=== PATIENT | male | born 1945 | race Caucasian/White ===

== ENCOUNTER 2020-06-28 12:21 | Emergency (ER) | payer MEDICARE, SELFPAY ==
--- NOTE | 2020-06-28 12:58 | ED.SKABFB ---
HPI - Skin/Abscess/Foreign Bdy General Chief complaint: Skin/Abscess/Foreign Body Stated complaint: shingles Time Seen by Provider: 06/28/20 12:58 Source: patient and RN notes reviewed Mode of arrival: ambulatory Limitations: no limitations History of Present Illness HPI narrative: 74-year-old male presents to the [facility] stating I think I have shingles. Patient states he thinks he has shingles to bilateral lower legs. On exam patient's legs are red, swollen and warm to touch. Right lower leg has green purulent dried crusted drainage that is malodorous. Patient reports that he does have some redness and swelling but since he pulled off a scab the leg just became worse. Patient is a poor historian. Denies any fevers. [facility] MD complaint: lesion Onset (ago): week(s) Location: LLE and RLE Severity: moderate Pain Consistency: constant Related Data Home Medications Medication Instructions Recorded Confirmed amlodipine 5 mg PO DAILY 06/28/20 06/28/20 lisinopril 30 mg PO DAILY 06/28/20 06/28/20 metoprolol tartrate 100 mg PO DAILY 06/28/20 06/28/20 Allergies Allergy/AdvReac Type Severity Reaction Status Date / Time No Known Allergies Allergy Verified 06/28/20 14:00 Review of Systems Constitutional: Constitutional: Reports as per HPI, Denies chills, Denies fever(s) and Denies weakness Cardiovascular: Cardiovascular: Reports no additional cardiovascular complaints and Denies chest pain Respiratory: Respiratory: Reports no additional respiratory complaints, Denies cough and Denies dyspnea Gastrointestinal: Gastrointestinal: Reports no additional gastrointestinal complaints, Denies abdominal pain, Denies nausea and Denies vomiting Musculoskeletal: Musculoskeletal: Reports as per HPI Integumentary/Breasts: Skin/Breast: Reports as per HPI and Reports erythema Neurologic: Denies dizziness Psychiatric: Psychiatric: Reports no additional psychiatric complaints PMFSH Past Medical History Medical History Hypertension Comments Patient not a very good historian. States he has high blood pressure and irregular heartbeat. At the time of my signature, I reviewed and agree with the nursing past medical, surgical, social, and family history. There is no relevant family history pertinent to the patient complaint. Exam Const: General: no acute distress, alert, ill appearing chronically and poor hygiene Orientation/consciousness: patient oriented x3 Other: Strong odor of infection, body odor. Neck: Neck: normal visual inspection Chest: Chest palpation & inspection: normal inspection of the chest Resp: Auscultation: diminished lung sounds diffuse Cardio: Rate: bradycardic Skin: Wounds: wounds noted right lower leg drainage green and malodorous Other: Circumferential right lower leg erythema, swelling, crusted dry drainage, purulent drainage, malodorous Circumferential left lower leg swelling and redness. Neuro: General: oriented to person, oriented to place and gait normal Speech: normal speech Extrem: General: edema bilateral Psych: Appearance: disheveled Affect: normal affect Attitude: cooperative Course Course Emergency Course: Due to the circumferential redness and swelling in the green drainage with the purulent patient to follow-up in 2-3 days with primary care provider. Along with odor explained to patient that lab work is needed and that topical treatment will not work alone. Assured patient that this was not shingles. Discussed rinse of not going to ER for further evaluation, patient verbalized understanding. Vital Signs Vital signs: Vital Signs Temperature 97.5 F L 06/28/20 13:00 Pulse Rate 56 L 06/28/20 13:00 Respiratory Rate 17 06/28/20 13:00 Blood Pressure 156/77 H 06/28/20 13:00 Pulse Oximetry 99 06/28/20 13:00 Temperature 97.5 F L 06/28/20 13:00 Pulse Rate 56 L 06/28/20 13:00
[2020-06-28 13:00] VITALS: BP 156/77; PULSE 56; RESP 17; TEMP 36.4; O2SAT 99
== END 2020-06-28 13:05 | disposition short-term general hospital (02) ==
PROVIDERS: Emergency Provider Nurse Practitioner
DX: L03.116 Cellulitis of left lower limb (principal); L03.115 Cellulitis of right lower limb; I10 Essential (primary) hypertension
CPT/HCPCS: 99212; G0463

== ENCOUNTER 2020-06-28 13:34 | Emergency (ER) | payer MEDICARE, SELFPAY ==
--- NOTE | ~2020-06-28 | US_ITS ---
US venous doppler LE RT DATE: 06/28/2020 16:34 INDICATION: Right leg swelling, cellulitis TECHNIQUE: Real-time and color flow imaging and Doppler analysis of the veins of the right lower extr emity COMPARISON: None FINDINGS: Right greater saphenous vein is patent. There is spontaneous and phasic flow and normal aug mentation and color flow signal and normal compression of the deep veins of the right lower extremity . IMPRESSION: No evidence of deep venous thrombosis of the right lower extremity Reviewed, dictated and finalized at [facility]. Reviewed, dictated and finalized at [facility].
[2020-06-28 14:27] VITALS: BP 138/73; PULSE 54; RESP 18; TEMP 36.6; O2SAT 100
[2020-06-28 14:41] LABS: Basophils Absolute Auto 0.1 K/mm3 (0.0-0.1); Basophils Percent Auto 0.7 % (0.2-1.2); Eosinophils Absolute Auto 0.1 K/mm3 (0-0.3); Eosinophils Percent Auto 0.7 % (0-4.4); Hematocrit 38.4 % (42.0-52.0); Hemoglobin 13.7 g/dL (14.0-18.0); Immature Granulocyte Absolute 0.04 K/mm3 (0.00-0.031); Immature Granulocyte Percent A 0.5 % (0-0.5); Lymphocytes Absolute Auto 1.23 K/mm3 (0.9-3.2); Lymphocytes Percent Auto 16.5 % (18.3-44.2); Mean Corpuscular HGB Conc 35.7 g/dl (32-36); Mean Corpuscular Volume 103.8 fl (80-100); Mean Platelet Volume 10.2 fl (7.4-10.4); Monocytes Percent Auto 12.9 % (2.6-8.5); Neutrophils Absolute Auto 5.1 K/mm3 (1.3-6.7); Neutrophils Percent Auto 68.7 % (45.5-73.1); Platelet Count Result 174 k/mm3 (150-375); Red Cell Distribution Width 12.4 % (11.5-14.5); White Blood Count 7.5 K/mm3 (4.5-10.0)
[2020-06-28 15:04] LABS: Anion Gap 8 mmol/L (8-16); Blood Urea Nitrogen 6 mg/dL (9-20); Calcium 9.3 mg/dL (8.4-10.2); Carbon Dioxide 27 mmol/L (22-30); Chloride 92 mmol/L (98-107); Estimated CRCL calculation 71 ml/min; Estimated Glomerular Filt Rate > 60; Glucose 90 mg/dL (75-110); Potassium 4.2 mmol/L (3.4-5.0); Sodium 127 mmol/L (137-145)
--- NOTE | 2020-06-28 16:46 | ED.GENADULT ---
HPI - General Adult General Chief complaint: Skin/Abscess/Foreign Body Stated complaint: leg cellulitis Time Seen by Provider: 06/28/20 15:13 Source: patient Mode of arrival: ambulatory Limitations: no limitations History of Present Illness HPI narrative: Patient is a 74-year-old male who presents to emergency department for evaluation of wound to the medial aspect of the right ruano patient notes weeping lesion with mild discomfort patient notes that is been there for several days has not been seen for this, plaint patient denies any fever chills nausea vomiting patient is followed at the [facility] Related Data Home Medications Medication Instructions Recorded Confirmed amlodipine 5 mg PO DAILY 06/28/20 06/28/20 lisinopril 30 mg PO DAILY 06/28/20 06/28/20 metoprolol tartrate 100 mg PO DAILY 06/28/20 06/28/20 Allergies Allergy/AdvReac Type Severity Reaction Status Date / Time No Known Allergies Allergy Verified 06/28/20 14:00 Review of Systems Review of Systems: All systems reviewed & are unremarkable except as noted in HPI and below PMFSH Past Medical History Medical History Hypertension Exam Narrative: Exam Narrative: GENERAL: Well-appearing, well-nourished, and in no acute distress. HEAD: Normocephalic, atraumatic. EYES: PERRLA and EOMI. ENT: Nares clear, no rhinorrhea or epistaxis. Mucous membranes moist. CHEST: Clear to auscultation. No respiratory distress. No wheezes rales or rhonchi HEART: Regular rate and rhythm. No murmur heard. EXTREMITIES: Normal range of motion. No edema. SKIN: Warm, dry, no rash. Patient with superficial wound to the medial aspect of the right ruano calf region with slight swelling no erythema yellow dry exudate noted no lymphangitic streaking minimal tenderness to palpation area seems consistent with possible infected venous stasis ulcer NEURO: No focal deficits. Alert and oriented x3. PSYCH: Normal mood and affect. Course Course Emergency Course: Patient evaluated in the emergency department for open wound to the leg patient will be discharged home advised to follow-up with his primary care for consideration of wound care referral patient agrees with this plan will be placed on antibiotics. No DVT distal pulses intact no high risk changes in the blood work Vital Signs Vital signs: Vital Signs Temperature 97.9 F 06/28/20 14:27 Pulse Rate 54 L 06/28/20 14:27 Respiratory Rate 18 06/28/20 14:27 Blood Pressure 138/73 06/28/20 14:27 Pulse Oximetry 100 06/28/20 14:27 Temperature 97.9 F 06/28/20 14:27 Pulse Rate 54 L 06/28/20 14:27 Respiratory Rate 18 06/28/20 14:27 Blood Pressure 138/73 06/28/20 14:27 Pulse Oximetry 100 06/28/20 14:27 Medical Decision Making MDM Narrative Medical decision making narrative: Patients injury or pain is consistent with musculoskeletal etiology. No signs of neurological or vascular compromise on exam. Compartments and tisues are soft without signs of compartment syndrome. Pain is felt appropriate for further evaluation on an outpatient basis. Patient with venous stasis ulcers which appear to be secondarily infected will be referred back to primary care for further evaluation Vital Signs Vital Signs: Vital Signs Temperature 97.9 F 06/28/20 14:27 Pulse Rate 54 L 06/28/20 14:27 Respiratory Rate 18 06/28/20 14:27 Blood Pressure 138/73 06/28/20 14:27 Pulse Oximetry 100 06/28/20 14:27 Temperature 97.9 F 06/28/20 14:27 Pulse Rate 54 L 06/28/20 14:27 Respiratory Rate 18 06/28/20 14:27 Blood Pressure 138/73 06/28/20 14:27 Pulse Oximetry 100 06/28/20 14:27 Lab Data Result diagrams: 06/28/20 14:33 06/28/20 14:33 Labs: Lab Results 06/28/20 06/28/20 Range/Units 14:33 14:33 WBC 7.5 (4.5-10.0) K/mm3 RBC 3.70 L (4.6-6.20) M/mm3 Hgb 13.7 L (14.0-18.0) g/dL Hct 38.4 L (42.0-52.0) %
[2020-06-28 17:25] VITALS: BP 132/88; PULSE 60; RESP 20; O2SAT 100
== END 2020-06-28 17:27 | disposition home or self-care (01) ==
PROVIDERS: Emergency Medicine; Emergency Provider Emergency Medicine
DX: L03.115 Cellulitis of right lower limb (principal); I10 Essential (primary) hypertension; M79.89 Other specified soft tissue disorders
CPT/HCPCS: 36415; 80048; 85025; 87070; 87075; 87076; 87077; 87185; 87205; 93971; 99283; 99284